=== PATIENT | male | born 1940 | race Caucasian/White ===

== ENCOUNTER 2022-08-28 15:35 | Inpatient (IN) | payer BC, MEDICARE ==
[~2022-08-28] VITALS: Ht 180.3 cm; Wt 103.9 kg
[2022-08-28 17:00] VITALS: BP 116/69
[2022-08-28] MEDS ORDERED: CLONIDINE 0.1MG TABLET PO PRN (19:00)
[2022-08-28 19:53] VITALS: BP 114/86
[2022-08-28] MEDS: ATORVASTATIN CALCIUM 40MG TABLET PO SCH (20:38)
[2022-08-28] MEDS ORDERED: INFLUENZA VACCINE 05/PF 0.5 ML SYRINGE IM ONE (21:00)
[2022-08-28] MEDS ORDERED: PNEUMOCOCCAL 23-VAL P-SAC VAC 0.5 ML IM ONE (21:00)
[2022-08-29] MEDS: ACETAMINOPHEN 325MG TABLET PO PRN ×2 (05:47→09:37)
[2022-08-29 06:00] LABS: BASOPHILS % 0.8 % (0.0-2.0); EOSINOPHILS % 3.9 % (0.0-5.0); HEMATOCRIT. 47.3 % (42.0-52.0); LYMPHOCYTES % 16.4 % (20.0-50.0); MEAN CORPUSCULAR HEMOGLOBIN 33.5 pg (28.0-32.0); MONOCYTES % 10.2 % (2.0-8.0); NEUTROPHILS % 68.7 % (40.0-76.0); PLATELET 202 x1000/uL (130-400); RED BLOOD CELL COUNT 4.78 mill/uL (4.7-6.1); RED CELL DISTRIBUTION WIDTH 14.8 % (11.6-14.6)
[2022-08-29] MEDS: PANTOPRAZOLE 40MG DR TABLET PO SCH (06:33)
[2022-08-29 07:18] LABS: CHLORIDE 103 mEq/L (98-107)
[2022-08-29 08:00] VITALS: BP 137/87
[2022-08-29] MEDS ORDERED: TAMSULOSIN HCL 0.4MG SR CAPSULE PO SCH (09:00)
[2022-08-29] MEDS: FLUTICASONE PROPIONATE 50MCG/SPRAY BOTTLE BOTHNSTRLS SCH (09:00)
[2022-08-29] MEDS: ASPIRIN 81MG TABLET PO SCH (09:35)
[2022-08-29] MEDS: METFORMIN HCL 500MG TABLET PO SCH ×2 (09:36→17:58)
[2022-08-29] MEDS: TAMSULOSIN HCL 0.4MG SR CAPSULE PO SCH (09:36)
[2022-08-29] MEDS: AMLODIPINE 5MG TABLET PO SCH (09:38)
[2022-08-29] MEDS: FINASTERIDE 5MG TABLET PO SCH (09:38)
[2022-08-29] MEDS: LISINOPRIL 20MG TABLET PO SCH ×2 (09:38→20:48)
[2022-08-29] MEDS: HEPARIN 5000 UNITS/ML VIAL SUBCUT SCH ×2 (09:38→20:49)
[2022-08-29] MEDS ORDERED: IPRATROPIUM/ALBUTEROL 0.5-3(2.5)MG/3ML NEB HHN PRN (12:45)
[2022-08-29 20:00] VITALS: BP 127/76
[2022-08-29] MEDS: ATORVASTATIN CALCIUM 40MG TABLET PO SCH (20:49)
[2022-08-30] MEDS: PANTOPRAZOLE 40MG DR TABLET PO SCH (05:39)
[2022-08-30 05:44] LABS: BASOPHILS % 0.9 % (0.0-2.0); EOSINOPHILS % 4.5 % (0.0-5.0); HEMATOCRIT. 46.3 % (42.0-52.0); HEMOGLOBIN. 15.7 g/dL (14.0-18.0); LYMPHOCYTES % 17.7 % (20.0-50.0); MEAN CORPUSCULAR HEMOGLOBIN 33.5 pg (28.0-32.0); MEAN CORPUSCULAR VOLUME 98.5 fL (80.0-94.0); MEAN PLATELET VOLUME 8.2 fl (7.4-10.4); MONOCYTES % 10.5 % (2.0-8.0); NEUTROPHILS % 66.4 % (40.0-76.0); PLATELET 212 x1000/uL (130-400); RED CELL DISTRIBUTION WIDTH 14.8 % (11.6-14.6)
[2022-08-30 06:06] LABS: CHLORIDE 102 mEq/L (98-107); CREATINE KINASE 111 IU/L (39-308); TOTAL IRON BINDING CAPACITY 286 ug/dL (250-450)
[2022-08-30 06:31] LABS: PROSTRATE SPECIFIC AG TOTAL 0.24 ng/mL (0.0-4.0)
[2022-08-30 08:00] VITALS: BP 108/78
[2022-08-30 08:26] LABS: FOLIC ACID (FOLATE) SERUM 17.5 ng/mL (>5.38)
[2022-08-30] MEDS: LISINOPRIL 20MG TABLET PO SCH ×2 (09:00→21:00)
[2022-08-30] MEDS: FLUTICASONE PROPIONATE 50MCG/SPRAY BOTTLE BOTHNSTRLS SCH (09:00)
[2022-08-30] MEDS: ACETAMINOPHEN 325MG TABLET PO PRN (09:01)
[2022-08-30] MEDS: FINASTERIDE 5MG TABLET PO SCH (09:02)
[2022-08-30] MEDS: HEPARIN 5000 UNITS/ML VIAL SUBCUT SCH ×2 (09:02→21:17)
[2022-08-30] MEDS: ASPIRIN 81MG TABLET PO SCH (09:02)
[2022-08-30] MEDS: AMLODIPINE 5MG TABLET PO SCH (09:02)
[2022-08-30] MEDS: METFORMIN HCL 500MG TABLET PO SCH ×2 (09:02→16:02)
[2022-08-30] MEDS: TAMSULOSIN HCL 0.4MG SR CAPSULE PO SCH (09:02)
[2022-08-30] MEDS ORDERED: CYANOCOBALAMIN 1000MCG/ML VIAL IM SCH (11:30)
[2022-08-30 20:00] VITALS: BP 121/70
[2022-08-30] MEDS: ATORVASTATIN CALCIUM 40MG TABLET PO SCH (21:17)
[2022-08-31] MEDS: PANTOPRAZOLE 40MG DR TABLET PO SCH (06:46)
[2022-08-31 08:00] VITALS: BP 139/85
[2022-08-31] MEDS: TAMSULOSIN HCL 0.4MG SR CAPSULE PO SCH (08:48)
[2022-08-31] MEDS: ASPIRIN 81MG TABLET PO SCH (08:48)
[2022-08-31] MEDS: HEPARIN 5000 UNITS/ML VIAL SUBCUT SCH ×2 (08:48→21:07)
[2022-08-31] MEDS: LISINOPRIL 20MG TABLET PO SCH ×2 (08:49→21:12)
[2022-08-31] MEDS: AMLODIPINE 5MG TABLET PO SCH (08:49)
[2022-08-31] MEDS: METFORMIN HCL 500MG TABLET PO SCH ×2 (08:49→16:48)
[2022-08-31] MEDS: FLUTICASONE PROPIONATE 50MCG/SPRAY BOTTLE BOTHNSTRLS SCH (08:49)
[2022-08-31] MEDS: FINASTERIDE 5MG TABLET PO SCH (08:49)
[2022-08-31] MEDS: ACETAMINOPHEN 325MG TABLET PO PRN (16:48)
[2022-08-31 20:30] VITALS: BP 104/50
[2022-08-31] MEDS: ATORVASTATIN CALCIUM 40MG TABLET PO SCH (21:15)
[2022-09-01] MEDS: PANTOPRAZOLE 40MG DR TABLET PO SCH (06:19)
[2022-09-01 08:00] VITALS: BP 133/86
[2022-09-01] MEDS: FINASTERIDE 5MG TABLET PO SCH (08:37)
[2022-09-01] MEDS: ASPIRIN 81MG TABLET PO SCH (08:38)
[2022-09-01] MEDS: HEPARIN 5000 UNITS/ML VIAL SUBCUT SCH ×2 (08:38→20:48)
[2022-09-01] MEDS: LISINOPRIL 20MG TABLET PO SCH ×2 (08:41→20:48)
[2022-09-01] MEDS: TAMSULOSIN HCL 0.4MG SR CAPSULE PO SCH (08:41)
[2022-09-01] MEDS: AMLODIPINE 5MG TABLET PO SCH (08:41)
[2022-09-01] MEDS: ACETAMINOPHEN 325MG TABLET PO PRN ×2 (08:42→20:59)
[2022-09-01] MEDS: METFORMIN HCL 500MG TABLET PO SCH ×2 (08:42→17:00)
[2022-09-01] MEDS ORDERED: ALBUTEROL (0.083%) 2.5MG/3ML NEB HHN PRN (15:00)
[2022-09-01] MEDS ORDERED: IPRATROPIUM BROMIDE (0.02%) 0.5MG/2.5ML NEB HHN PRN (15:00)
[2022-09-01 19:56] VITALS: BP 130/82
[2022-09-01] MEDS: ATORVASTATIN CALCIUM 40MG TABLET PO SCH (20:47)
[2022-09-02] MEDS: FAMOTIDINE 20MG TABLET PO SCH ×2 (06:46→17:19)
[2022-09-02 08:00] VITALS: BP 103/65
[2022-09-02] MEDS: ASPIRIN 81MG TABLET PO SCH (09:14)
[2022-09-02] MEDS: METFORMIN HCL 500MG TABLET PO SCH ×2 (09:14→17:20)
[2022-09-02] MEDS: HEPARIN 5000 UNITS/ML VIAL SUBCUT SCH ×2 (09:14→21:10)
[2022-09-02] MEDS: LISINOPRIL 20MG TABLET PO SCH ×2 (09:14→21:00)
[2022-09-02] MEDS: AMLODIPINE 5MG TABLET PO SCH (09:15)
[2022-09-02] MEDS: FINASTERIDE 5MG TABLET PO SCH (09:15)
[2022-09-02] MEDS: TAMSULOSIN HCL 0.4MG SR CAPSULE PO SCH (09:15)
[2022-09-02 19:09] LABS: 25-HYDROXY VITAMIN D3 34 ng/mL (.)
[2022-09-02 20:00] VITALS: BP 105/64
[2022-09-02] MEDS: ACETAMINOPHEN 325MG TABLET PO PRN (21:09)
[2022-09-02] MEDS: ATORVASTATIN CALCIUM 40MG TABLET PO SCH (21:10)
[2022-09-02] MEDS: SULFACETAMIDE SODIUM 10% OPHTH DROPS 15ML RIGHTEYE SCH (21:11)
[2022-09-03] MEDS: FAMOTIDINE 20MG TABLET PO SCH ×2 (06:04→16:58)
[2022-09-03 08:00] VITALS: BP 108/74
[2022-09-03] MEDS: LISINOPRIL 20MG TABLET PO SCH ×2 (09:00→20:54)
[2022-09-03] MEDS: SULFACETAMIDE SODIUM 10% OPHTH DROPS 15ML RIGHTEYE SCH ×4 (10:13→21:00)
[2022-09-03] MEDS: AMLODIPINE 5MG TABLET PO SCH ×2 (10:15→10:26)
[2022-09-03] MEDS: ASPIRIN 81MG TABLET PO SCH (10:16)
[2022-09-03] MEDS: TAMSULOSIN HCL 0.4MG SR CAPSULE PO SCH (10:18)
[2022-09-03] MEDS: FINASTERIDE 5MG TABLET PO SCH (10:20)
[2022-09-03] MEDS: METFORMIN HCL 500MG TABLET PO SCH ×2 (10:27→16:58)
[2022-09-03] MEDS: HEPARIN 5000 UNITS/ML VIAL SUBCUT SCH ×2 (10:32→20:53)
[2022-09-03 20:00] VITALS: BP 119/77
[2022-09-03] MEDS: ATORVASTATIN CALCIUM 40MG TABLET PO SCH (20:53)
[2022-09-04] MEDS: FAMOTIDINE 20MG TABLET PO SCH ×2 (06:50→17:14)
[2022-09-04 08:00] VITALS: BP 116/57
[2022-09-04] MEDS: ASPIRIN 81MG TABLET PO SCH (09:21)
[2022-09-04] MEDS: HEPARIN 5000 UNITS/ML VIAL SUBCUT SCH ×2 (09:21→20:59)
[2022-09-04] MEDS: METFORMIN HCL 500MG TABLET PO SCH ×2 (09:21→17:14)
[2022-09-04] MEDS: LISINOPRIL 20MG TABLET PO SCH ×2 (09:22→20:58)
[2022-09-04] MEDS: FINASTERIDE 5MG TABLET PO SCH (09:22)
[2022-09-04] MEDS: SULFACETAMIDE SODIUM 10% OPHTH DROPS 15ML RIGHTEYE SCH ×4 (09:22→21:01)
[2022-09-04] MEDS: TAMSULOSIN HCL 0.4MG SR CAPSULE PO SCH (09:22)
[2022-09-04 16:10] LABS: CLARITY URINE CLEAR (CLEAR); COLOR URINE YELLOW (YELLOW); KETONES URINE TRACE (NEGATIVE); LEUKOCYTE ESTERASE URINE 1+ (NEGATIVE); NITRITE URINE NEGATIVE (NEGATIVE); OCCULT BLOOD URINE NEGATIVE (NEGATIVE); PH URINE 5.5 (4.5-8.0); PROTEIN URINE NEGATIVE (NEGATIVE); SPECIFIC GRAVITY URINE 1.022 (1.005-1.030)
[2022-09-04 20:00] VITALS: BP 99/69
[2022-09-04] MEDS: ATORVASTATIN CALCIUM 40MG TABLET PO SCH (20:57)
[2022-09-04] MEDS: ACETAMINOPHEN 325MG TABLET PO PRN (20:58)
[2022-09-05] MEDS: FAMOTIDINE 20MG TABLET PO SCH ×2 (06:05→17:11)
[2022-09-05 08:00] VITALS: BP 118/71
[2022-09-05] MEDS: SULFACETAMIDE SODIUM 10% OPHTH DROPS 15ML RIGHTEYE SCH ×3 (09:00→21:22)
[2022-09-05] MEDS: FINASTERIDE 5MG TABLET PO SCH (09:06)
[2022-09-05] MEDS: AMLODIPINE 5MG TABLET PO SCH (09:06)
[2022-09-05] MEDS: ASPIRIN 81MG TABLET PO SCH (09:06)
[2022-09-05] MEDS: METFORMIN HCL 500MG TABLET PO SCH ×2 (09:06→17:11)
[2022-09-05] MEDS: TAMSULOSIN HCL 0.4MG SR CAPSULE PO SCH (09:07)
[2022-09-05] MEDS: LISINOPRIL 20MG TABLET PO SCH ×2 (09:07→21:22)
[2022-09-05] MEDS: ACETAMINOPHEN 325MG TABLET PO PRN ×2 (09:07→17:12)
[2022-09-05] MEDS: HEPARIN 5000 UNITS/ML VIAL SUBCUT SCH ×2 (09:08→21:21)
[2022-09-05] MEDS: LEVOFLOXACIN 500MG TABLET PO SCH (17:11)
[2022-09-05 20:00] VITALS: BP 105/48
[2022-09-05] MEDS: ATORVASTATIN CALCIUM 40MG TABLET PO SCH (21:21)
[2022-09-06] MEDS: FAMOTIDINE 20MG TABLET PO SCH ×2 (06:55→16:33)
[2022-09-06 08:00] VITALS: BP 140/94
[2022-09-06] MEDS: ASPIRIN 81MG TABLET PO SCH (09:12)
[2022-09-06] MEDS: AMLODIPINE 5MG TABLET PO SCH (09:12)
[2022-09-06] MEDS: TAMSULOSIN HCL 0.4MG SR CAPSULE PO SCH (09:13)
[2022-09-06] MEDS: LISINOPRIL 20MG TABLET PO SCH ×2 (09:13→21:07)
[2022-09-06] MEDS: METFORMIN HCL 500MG TABLET PO SCH ×2 (09:13→16:33)
[2022-09-06] MEDS: HEPARIN 5000 UNITS/ML VIAL SUBCUT SCH ×2 (09:13→21:07)
[2022-09-06] MEDS: FINASTERIDE 5MG TABLET PO SCH (09:13)
[2022-09-06] MEDS ORDERED: ERGOCALCIFEROL 50000UNITS CAPSULE PO SCH (15:00)
[2022-09-06] MEDS: LEVOFLOXACIN 500MG TABLET PO SCH (16:33)
[2022-09-06 19:49] VITALS: BP 130/70
[2022-09-06] MEDS: ATORVASTATIN CALCIUM 40MG TABLET PO SCH (21:06)
[2022-09-07] MEDS: FAMOTIDINE 20MG TABLET PO SCH ×2 (06:55→16:11)
[2022-09-07 07:46] LABS: CHLORIDE 101 mEq/L (98-107)
[2022-09-07 07:52] LABS: BASOPHILS % 0.4 % (0.0-2.0); EOSINOPHILS % 2.7 % (0.0-5.0); HEMATOCRIT. 45.1 % (42.0-52.0); HEMOGLOBIN. 15.6 g/dL (14.0-18.0); LYMPHOCYTES % 20.3 % (20.0-50.0); MEAN CORPUSCULAR VOLUME 98.4 fL (80.0-94.0); MEAN PLATELET VOLUME 8.9 fl (7.4-10.4); MONOCYTES % 11.2 % (2.0-8.0); NEUTROPHILS % 65.4 % (40.0-76.0); PLATELET 202 x1000/uL (130-400); RED BLOOD CELL COUNT 4.58 mill/uL (4.7-6.1); RED CELL DISTRIBUTION WIDTH 14.8 % (11.6-14.6)
[2022-09-07 08:00] VITALS: BP 126/82
[2022-09-07] MEDS: METFORMIN HCL 500MG TABLET PO SCH ×2 (09:40→16:11)
[2022-09-07] MEDS: ACETAMINOPHEN 325MG TABLET PO PRN ×2 (09:41→16:11)
[2022-09-07] MEDS: AMLODIPINE 5MG TABLET PO SCH (09:41)
[2022-09-07] MEDS: ASPIRIN 81MG TABLET PO SCH (09:41)
[2022-09-07] MEDS: FINASTERIDE 5MG TABLET PO SCH (09:42)
[2022-09-07] MEDS: TAMSULOSIN HCL 0.4MG SR CAPSULE PO SCH (09:42)
[2022-09-07] MEDS: LISINOPRIL 20MG TABLET PO SCH ×2 (09:42→21:00)
[2022-09-07] MEDS: HEPARIN 5000 UNITS/ML VIAL SUBCUT SCH ×2 (09:43→21:31)
[2022-09-07] MEDS: LEVOFLOXACIN 500MG TABLET PO SCH (16:11)
[2022-09-07 20:00] VITALS: BP 109/66
[2022-09-07] MEDS: ATORVASTATIN CALCIUM 40MG TABLET PO SCH (21:30)
[2022-09-08] MEDS: ACETAMINOPHEN 325MG TABLET PO PRN ×2 (00:06→09:20)
[2022-09-08] MEDS: FAMOTIDINE 20MG TABLET PO SCH (06:47)
[2022-09-08 08:00] VITALS: BP 92/56
[2022-09-08] MEDS: LISINOPRIL 20MG TABLET PO SCH (09:00)
[2022-09-08] MEDS: TAMSULOSIN HCL 0.4MG SR CAPSULE PO SCH (09:00)
[2022-09-08] MEDS: AMLODIPINE 5MG TABLET PO SCH (09:00)
[2022-09-08] MEDS: FINASTERIDE 5MG TABLET PO SCH (09:09)
[2022-09-08] MEDS: ASPIRIN 81MG TABLET PO SCH (09:09)
[2022-09-08] MEDS: METFORMIN HCL 500MG TABLET PO SCH (09:09)
[2022-09-08] MEDS: HEPARIN 5000 UNITS/ML VIAL SUBCUT SCH (09:10)
[2022-09-08 11:04] VITALS: BP 92/56
== END 2022-09-08 12:33 | disposition home health service (06) | DRG 91 ==
LOC: OBSVTOIN 15:35
PROVIDERS: ADMIT Physical Medicine & Rehabilitation Spinal Cord Injury Medicine; ATTEND Internal Medicine Critical Care Medicine
DX: G92.8 Other toxic encephalopathy (principal); I63.9 Cerebral infarction, unspecified; E44.1 Mild protein-calorie malnutrition; E87.1 Hypo-osmolality and hyponatremia; N13.6 Pyonephrosis; E11.42 Type 2 diabetes mellitus with diabetic polyneuropathy; D64.9 Anemia, unspecified; E55.9 Vitamin D deficiency, unspecified; E66.01 Morbid (severe) obesity due to excess calories; E87.6 Hypokalemia; F39 Unspecified mood [affective] disorder; I10 Essential (primary) hypertension; I25.10 Atherosclerotic heart disease of native coronary artery without angina pectoris; M48.061 Spinal stenosis, lumbar region without neurogenic claudication; M54.16 Radiculopathy, lumbar region; N47.1 Phimosis; R29.6 Repeated falls; T43.211A Poisoning by selective serotonin and norepinephrine reuptake inhibitors, accidental (unintentional), initial encounter; R53.81 Other malaise; Z68.31 Body mass index [BMI] 31.0-31.9, adult; Z82.49 Family history of ischemic heart disease and other diseases of the circulatory system; Z83.3 Family history of diabetes mellitus; Z86.73 Personal history of transient ischemic attack (TIA), and cerebral infarction without residual deficits; Z91.81 History of falling; Y92.89 Other specified places as the place of occurrence of the external cause; Z79.899 Other long term (current) drug therapy
CPT/HCPCS: 36415; 76770; 80048; 80053; 81003; 82140; 82306; 82550; 82607; 82728; 82746; 83036; 83540; 83550; 84134; 84153; 84443; 85025; 90686; 90732; 92523; 93970; 97110; 97116; 97162; 97166; 97530; 97535; J1644; J3420; A5200; G0103

== ENCOUNTER 2025-04-26 18:39 | Inpatient (IN) | payer MEDICARE ==
[~2025-04-26] VITALS: Ht 180.3 cm; Wt 94.8 kg
[2025-04-26] MEDS ORDERED: ATOR10TA69 MT (18:47)
[2025-04-26 19:43] LABS: BASOPHILS % 0.2 % (0.0-2.0); EOSINOPHILS % 0.1 % (0.0-5.0); HEMATOCRIT. 49.1 % (42.0-52.0); HEMOGLOBIN. 16.5 g/dL (14.0-18.0); LYMPHOCYTES % 9.0 % (20.0-50.0); MEAN PLATELET VOLUME 8.1 fl (7.4-10.4); MONOCYTES % 10.6 % (2.0-8.0); NEUTROPHILS % 80.1 % (40.0-76.0); PLATELET 184 x1000/uL (130-400); RED BLOOD CELL COUNT 4.94 mill/uL (4.7-6.1); RED CELL DISTRIBUTION WIDTH 14.3 % (11.6-14.6)
[2025-04-26 19:59] LABS: CREATININE 1.1 mg/dL (0.6-1.3)
[2025-04-26 20:00] LABS: TROPONIN I HIGH SENSITIVITY 5 ng/L (3.0-53); UREA NITROGEN BLOOD 11 mg/dL (9-23)
[2025-04-26 20:01] LABS: ASPARTATE AMINOTRANSFERASE 38 IU/L (<34); BILIRUBIN DIRECT 0.4 mg/dL (<=3.0)
[2025-04-26 20:02] LABS: BILIRUBIN TOTAL 1.1 mg/dL (0.1-1.0); PROTEIN TOTAL 6.9 g/dL (6.0-8.3)
[2025-04-26 22:23] LABS: INFLUENZA TYPE A Presumptive Negative (Pres. Neg.); INFLUENZA TYPE B Presumptive Negative (Pres. Neg.)
[2025-04-26 22:24] LABS: RESPIRATORY SYNCYTIAL VIRUS Not Detected (Not Detectd)
[2025-04-27 01:14] VITALS: BP 137/92; PULSE 115; RESP 18; TEMP 36.8072
[2025-04-27] MEDS ORDERED: CLONIDINE 0.1MG TABLET PO PRN (03:30)
[2025-04-27] MEDS ORDERED: MAGNESIUM/ALUMINUM HYDROXIDE/SIMETHICONE 30ML UDC PO PRN (03:30)
[2025-04-27] MEDS ORDERED: ACETAMINOPHEN 325MG TABLET PO PRN ×2 (03:30)
[2025-04-27] MEDS ORDERED: DOCUSATE SODIUM 100MG CAPSULE PO PRN (03:30)
[2025-04-27] MEDS ORDERED: ONDANSETRON HCL 4MG/2ML INJ IV PRN (03:30)
[2025-04-27] MEDS ORDERED: DEXTROSE 50% WATER 50ML SYRINGE IV PRN (03:45)
[2025-04-27] MEDS ORDERED: THROAT LOZENGES-BENZOCAINE/MENTH/CETYLPYRD CL LOZENGES MM PRN (03:45)
[2025-04-27] MEDS ORDERED: TRAMADOL 50MG TABLET PO PRN (03:45)
[2025-04-27] MEDS ORDERED: NALOXONE HCL 0.4MG/ML VIAL IV PRN (04:00)
[2025-04-27] MEDS ORDERED: HYDROCODONE/ACETAMINOPHEN 10/325MG TABLET PO PRN (04:30)
[2025-04-27] MEDS: HYDROXYZINE 25MG TABLET PO NR (04:55)
[2025-04-27] MEDS: METOPROLOL TARTRATE 5MG/5ML VIAL IV NR (04:56)
[2025-04-27] MEDS: LORATADINE 10MG TABLET PO SCH (04:56)
[2025-04-27] MEDS: SODIUM CHLORIDE 0.45% 1,000 ML IV SCH (04:57)
[2025-04-27] MEDS: BLOOD SUGAR DIAGNOSTIC STRIP TEST SCH (07:19)
[2025-04-27 08:00] VITALS: BP 144/93; PULSE 95; RESP 16; TEMP 36.4; O2SAT 98
[2025-04-27] MEDS: LISINOPRIL 5MG TABLET PO SCH (09:26)
[2025-04-27] MEDS: FINASTERIDE 5MG TABLET PO SCH (09:26)
[2025-04-27] MEDS: AZITHROMYCIN 500 MG TABLET PO SCH (09:26)
[2025-04-27] MEDS: TAMSULOSIN HCL 0.4MG SR CAPSULE PO SCH (09:26)
[2025-04-27] MEDS: PANTOPRAZOLE SODIUM 40 MG/VIAL IV SCH (09:26)
[2025-04-27] MEDS: ENOXAPARIN 40MG/0.4ML SYR SUBCUT SCH (09:27)
[2025-04-27] MEDS: INSULIN LISPRO 100 UNITS/ML SUBCUT SCH (09:29)
[2025-04-27 09:58] VITALS: PULSE 93; RESP 20; O2SAT 92
[2025-04-27] MEDS: IPRATROPIUM/ALBUTEROL 0.5-3(2.5)MG/3ML NEB HHN PRN (09:58)
[2025-04-27 12:00] VITALS: BP 100/48; PULSE 90; RESP 17; TEMP 36.2; O2SAT 95
[2025-04-27 16:00] VITALS: BP_SYST 110; BP_SYST 124; BP_DIAS 51; BP_DIAS 82; PULSE 72; PULSE 78; RESP 16; RESP 18; TEMP 36.2; TEMP 36.3; O2SAT 96; O2SAT 97
[2025-04-27 20:00] VITALS: BP 107/65; PULSE 81; RESP 18; TEMP 36.9; O2SAT 96
[2025-04-27] MEDS: ATORVASTATIN CALCIUM 20MG TABLET PO SCH (21:14)
[2025-04-28] VITALS (7 sets, daily range): BP systolic 92–150; BP diastolic 58–99; PULSE 77–91; RESP 17–18; TEMP 36.2–36.5; O2SAT 94–99
[2025-04-28 10:29] LABS: BASOPHILS % 0.5 % (0.0-2.0); EOSINOPHILS % 0.4 % (0.0-5.0); HEMATOCRIT. 44.6 % (42.0-52.0); HEMOGLOBIN. 15.3 g/dL (14.0-18.0); LYMPHOCYTES % 10.7 % (20.0-50.0); MEAN PLATELET VOLUME 8.7 fl (7.4-10.4); MONOCYTES % 9.8 % (2.0-8.0); NEUTROPHILS % 78.6 % (40.0-76.0); PLATELET 163 x1000/uL (130-400); RED BLOOD CELL COUNT 4.54 mill/uL (4.7-6.1); RED CELL DISTRIBUTION WIDTH 14.4 % (11.6-14.6)
[2025-04-28 10:50] LABS: CREATININE 1.0 mg/dL (0.6-1.3)
[2025-04-28 10:51] LABS: UREA NITROGEN BLOOD 18 mg/dL (9-23)
[2025-04-28 18:32] LABS: BASOPHILS % 0.6 % (0.0-2.0); EOSINOPHILS % 1.2 % (0.0-5.0); HEMATOCRIT. 43.2 % (42.0-52.0); HEMOGLOBIN. 14.5 g/dL (14.0-18.0); LYMPHOCYTES % 13.0 % (20.0-50.0); MEAN PLATELET VOLUME 8.6 fl (7.4-10.4); MONOCYTES % 9.8 % (2.0-8.0); NEUTROPHILS % 75.4 % (40.0-76.0); PLATELET 161 x1000/uL (130-400); RED BLOOD CELL COUNT 4.32 mill/uL (4.7-6.1); RED CELL DISTRIBUTION WIDTH 14.4 % (11.6-14.6)
[2025-04-28 18:43] LABS: CREATININE 0.9 mg/dL (0.6-1.3); UREA NITROGEN BLOOD 17 mg/dL (9-23)
[2025-04-28] MEDS: GUAIFENESIN 200MG/10ML SUGAR FREE UDC PO PRN (22:40)
[2025-04-29] VITALS: BP 140/96; PULSE 80; RESP 18; TEMP 36.1; O2SAT 95
[2025-04-29 04:00] VITALS: BP 130/92; PULSE 73; RESP 18; TEMP 36.5; O2SAT 96
[2025-04-29 08:00] VITALS: BP 133/93; PULSE 69; RESP 16; TEMP 36.2; O2SAT 96
[2025-04-29 12:00] VITALS: BP 135/80; PULSE 70; RESP 18; TEMP 36.3; O2SAT 97
[2025-04-29 16:00] VITALS: BP 146/87; PULSE 74; RESP 17; TEMP 36.4; O2SAT 96
[2025-04-29] MEDS ORDERED: BENA-8 PO (16:13)
[2025-04-29] MEDS ORDERED: TAMS-54 PO (16:14)
[2025-04-29] MEDS ORDERED: FINA5TAB11 PO (16:17)
[2025-04-29 20:00] VITALS: BP 130/79; PULSE 87; RESP 20; TEMP 36.6; O2SAT 97
[2025-04-30] VITALS: BP 134/85; PULSE 77; RESP 19; TEMP 36.2; O2SAT 97
[2025-04-30 04:00] VITALS: BP_SYST 123; BP_SYST 134; BP_DIAS 80; BP_DIAS 85; PULSE 71; PULSE 77; RESP 19; RESP 20; TEMP 36.1; TEMP 36.4; O2SAT 97; O2SAT 99
[2025-04-30 08:00] VITALS: BP 145/84; PULSE 68; RESP 16; TEMP 36.4; O2SAT 95
[2025-04-30 12:00] VITALS: BP 123/79; PULSE 73; RESP 18; TEMP 36.3; O2SAT 96
[2025-04-30 15:37] VITALS: BP 123/79; PULSE 96; RESP 17; TEMP 97.3
[2025-04-30 16:00] VITALS: BP 138/87; PULSE 74; RESP 17; TEMP 36.2; O2SAT 96
== END 2025-04-30 17:15 | disposition home or self-care (01) | DRG 152 ==
LOC: ER 18:39 → 6WST 22:24 → EDBEDREQTM 22:41 → EDBEDREQ 22:41 → ENRESERV 23:03
PROVIDERS: ADMIT Internal Medicine; ATTEND Internal Medicine
DX: J01.80 Other acute sinusitis (principal); G93.41 Metabolic encephalopathy; N39.0 Urinary tract infection, site not specified; M62.82 Rhabdomyolysis; I95.1 Orthostatic hypotension; S80.212A Abrasion, left knee, initial encounter; E11.40 Type 2 diabetes mellitus with diabetic neuropathy, unspecified; R74.01 Elevation of levels of liver transaminase levels; Z20.822 Contact with and (suspected) exposure to COVID-19; M48.061 Spinal stenosis, lumbar region without neurogenic claudication; E78.00 Pure hypercholesterolemia, unspecified; I10 Essential (primary) hypertension; I25.10 Atherosclerotic heart disease of native coronary artery without angina pectoris; L85.3 Xerosis cutis; R29.6 Repeated falls; R32 Unspecified urinary incontinence; S80.211A Abrasion, right knee, initial encounter; W18.39XA Other fall on same level, initial encounter; B97.89 Other viral agents as the cause of diseases classified elsewhere; Z79.899 Other long term (current) drug therapy; Z87.440 Personal history of urinary (tract) infections; Z86.73 Personal history of transient ischemic attack (TIA), and cerebral infarction without residual deficits; Z79.4 Long term (current) use of insulin; Z78.1 Physical restraint status; Y93.89 Activity, other specified; Y92.89 Other specified places as the place of occurrence of the external cause
CPT/HCPCS: 36415; 71045; 80048; 80076; 80307; 80329; 82140; 82550; 82962; 83036; 83735; 83880; 84484; 85025; 87070; 87420; 87426; 87430; 87804; 93005; 94070; 94640; 97162; 97166; 97530; 99285; A4606; J1650; J1815; J2470; J3490